=== PATIENT | female | born 1960 ===

== ENCOUNTER 2016-04-14 05:05 | Day surgery (SDC) | payer BC ==
[~2016-04-14 05:05] MED LIST: ACET500CAP PO; ALLEGRA180 PO; AMBIEN CR12.5 MG PO; BL FLAX SEED1000 MG PO; CULTURELLE PROBIOTIC PO; IBU600 PO; PREM.3B PO; SINGULAIR1 PO; VITAMIN D31000 UNIT PO; VITE PO; ZINC220C PO
== END 2016-04-14 10:15 | disposition home or self-care (01) ==
LOC: SDC 05:05
PROVIDERS: Orthopaedic Surgery
PROC: 3E0S3BZ Introduction of Anesthetic Agent into Epidural Space, Percutaneous Approach (ICD-10-PCS; 2016-04-14)
PROC: 3E0S33Z Introduction of Anti-inflammatory into Epidural Space, Percutaneous Approach (ICD-10-PCS; principal; 2016-04-14 07:15)
DX: M54.16 Radiculopathy, lumbar region (principal); M19.90 Unspecified osteoarthritis, unspecified site; M41.9 Scoliosis, unspecified; Z88.5 Allergy status to narcotic agent; Z88.8 Allergy status to other drugs, medicaments and biological substances; Z79.899 Other long term (current) drug therapy; Z79.1 Long term (current) use of non-steroidal anti-inflammatories (NSAID); Z90.49 Acquired absence of other specified parts of digestive tract; Z90.710 Acquired absence of both cervix and uterus; Z98.51 Tubal ligation status; Z98.890 Other specified postprocedural states
CPT/HCPCS: J1040; J2250; J2405; J2550; J3010; Q9967